=== PATIENT | female | born 1955 | race Caucasian/White ===

== ENCOUNTER 2018-12-26 07:34 | Day surgery (SDC) | payer BC ==
[~2018-12-26] VITALS: Ht 157.5 cm; Wt 65.9 kg
[2018-12-26] MEDS ORDERED: HYDROCHLOROTH12.5 M1 PO (07:44)
[2018-12-26] MEDS ORDERED: CRESTOR10 MG PO (07:45)
[2018-12-26] MEDS ORDERED: SINGULAIR10 MG PO (07:45)
[2018-12-26] MEDS ORDERED: OMEPRAZOLE20 M1 PO (07:45)
[2018-12-26] MEDS ORDERED: ALBUTEROL SULF8.5 GM INH (07:46)
[2018-12-26] MEDS ORDERED: ADVAIR 250/501 DISK INH (07:46)
[2018-12-26] MEDS ORDERED: ASPIRIN81 MG PO (07:47)
[2018-12-26] MEDS ORDERED: NASONEX NASAL S17 GM NS (07:47)
[2018-12-26 08:15] LABS: BASOPHILS 0.2 % (0-2); EOSINOPHILS 1.8 % (0-7); HEMATOCRIT 45.5 % (36.0-48.0); HEMOGLOBIN 15.2 g/dL (12-16); IMMATURE GRANULOCYTES 0.4 % (0-5); MCH 29.1 pg (26.0-34.0); MCHC 33.4 g/dL (31.0-37.0); MCV 87.2 fL (80.0-100.0); MEAN PLATELET VOLUME 9.6 fL (7.4-10.4); MONOCYTES 6.5 % (2-11); NEUTROPHILS 72.1 % (40-80); PLATELET COUNT 299 10x3/uL (130-400); RBC 5.22 10x6/uL (4.00-5.40); WBC 16.5 10x3/uL (4.8-10.8)
[2018-12-26 08:18] LABS: APPEARANCE CLEAR (CLEAR); BILIRUBIN NEGATIVE (NEGATIVE); COLOR YELLOW (YELLOW); GLUCOSE NEGATIVE (NEGATIVE); KETONE NEGATIVE (NEGATIVE); NITRITE NEGATIVE (NEGATIVE); PROTEIN NEGATIVE (NEGATIVE); SPECIFIC GRAVITY 1.005 (1.005-1.020); UROBILINOGEN NORMAL (NORMAL)
[2018-12-26 08:24] LABS: ALKALINE PHOSPHATASE 98 U/L (46-116); ALT (SGPT) 51 U/L (10-68); BILIRUBIN - TOTAL 0.48 mg/dL (0.2-1.3); CALC OSMOLALITY 281 mosm/kg (275-300); CALCIUM 9.1 mg/dL (8.5-10.1); CARBON DIOXIDE 26.4 mmol/L (21.0-32.0); CHLORIDE - SERUM 104 mmol/L (98-107); GLUCOSE 103 mg/dL (74-106); POTASSIUM - SERUM 4.1 mmol/L (3.5-5.1); PROTEIN - SERUM 7.3 g/dL (6.4-8.2); SODIUM 142 mmol/L (136-145); UREA NITROGEN 10 mg/dL (7-18); eGFR NON AFRICAN AMERICAN 59 mL/min (90-120)
[2018-12-26 08:27] LABS: AMYLASE - SERUM 46 U/L (25-115); LIPASE 221 U/L (73-393)
[2018-12-26 08:30] LABS: TROPONIN-I < 0.017 ng/mL (0.000-0.060)
[2018-12-26 11:23] VITALS: BP 102/67
[2018-12-26 14:16] VITALS: Ht 157.5 cm; Wt 65.9 kg
--- NOTE | 2018-12-26 15:15 | NUR ---
1515 FL DIET SERVED. TALKATIVE WITH VISITOR. DENIES NEEDS.
--- NOTE | 2018-12-27 18:23 | OP ---
PATIENT NAME: ABRAM PALMA MEDICAL RECORD: [id number] :53 LOCATION:[facility] ADMISSION DATE: SURGEON: LUIS ALBERTO WELLS MD DATE OF OPERATION: 12/26/2018 PREOPERATIVE DIAGNOSIS: Acute appendicitis with localized peritonitis. POSTOPERATIVE DIAGNOSIS: Acute appendicitis with localized peritonitis with no evidence of rupture or abscess. PROCEDURE: Laparoscopic appendectomy. SURGEON: Luis Alberto Wells MD SENIOR MEDICAL WRITER: None. BLOOD LOSS: Minimal. ANESTHESIA: General. COMPLICATIONS: None. The risks, possible complications and alternatives to the procedure were explained to the patient. She elects to proceed. The discussion specifically included, but was not limited to, bleeding requiring emergency reoperation, infection, and staple line leakage. OPERATIVE COURSE: The patient was conveyed the operating room urgently on 12/26/2018. General anesthesia was induced by the anesthesia staff. The abdomen was sterilely prepped and draped. A small skin mohit was accomplished in the left upper quadrant. Veress needle was inserted through the skin mohit into the peritoneal cavity. CO2 insufflation was begun. Once a sufficient pneumoperitoneum had been achieved, a 5-mm trocar was inserted through an incision in the left lower quadrant. Under direct internal vision utilizing a television camera, a 12-mm trocar was inserted through an incision at the umbilicus. Another 5-mm trocar was inserted through an incision in the suprapubic area. During insertion of the Veress needle and all trocars, there appeared to have been no injury to the bowels, any intraperitoneal or retroperitoneal structures. An abdominal survey was undertaken. The appendix was acutely inflamed. There was exudate over the appendix. There was some peritonitis in the area around the appendix on the abdominal sidewall. The appendix was grasped. A window was created in the mesoappendix. I stapled across the tip of the cecum with an Endo-ROSA type staple utilizing a blue load. I then took down the mesoappendix utilizing the laparoscopic EnSeal device. The appendix was placed within a bag retrieval device and was withdrawn through the umbilical fascia defect. The 12-mm trocar was replaced and the abdomen reinsufflated. I irrigated and aspirated the right lower quadrant. There was some bleeding from the appendiceal stump and this was controlled with metallic clips. The 12-mm trocar was removed. The fascia at the umbilicus was closed with OPERATIVE REPORT [id number] ABRAM PALMA multiple interrupted 0 Vicryls utilizing the Fidencio-Darshana suture closure device. The umbilical skin was approximated with interrupted 4-0 Vicryl Rapide sutures. The other 2 trocar sites were closed with interrupted intracuticular 3-0 Vicryls. Benzoin and Steri-Strips were applied. The patient was then extubated and conveyed to post-anesthesia care unit where she was in stable condition. TRANSINT:[id number] Voice Confirmation ID: [id number] DOCUMENT ID: [id number] LUIS ALBERTO WELLS MD at 1823 CC: [id number] DICTATION DATE: 12/26/18 1421 [employer] COMMISSIONER: 12/26/18 2257 [facility] 12/26/[address] [id number]
== END 2018-12-26 17:45 | disposition home or self-care (01) ==
LOC: D.ER 07:34 → D.PACU 07:34 → EDSTATUS 12:00 → D.MS 14:20 → D.PACU 14:20
PROVIDERS: ATTEND Family Medicine
DX: K35.30 Acute appendicitis with localized peritonitis, without perforation or gangrene (principal)